=== PATIENT | male | born 1960 | race Caucasian/White ===

== ENCOUNTER 2021-01-21 08:20 | Outpatient (CLI) | payer BC | END 2021-01-21 08:21 | disposition home or self-care (01) | LOC: CSHMRI 08:20 → MERGE 08:20 → CSHMRI 08:21 | PROVIDERS: ATTEND Radiology Radiation Oncology | DX: C61 Malignant neoplasm of prostate (principal) | CPT/HCPCS: 72197 ==

== ENCOUNTER 2021-05-04 08:28 | Outpatient (CLI) | payer BC | END 2021-05-04 08:29 | disposition home or self-care (01) | LOC: CSHMRI 08:28 | PROVIDERS: ATTEND Radiology Radiation Oncology | DX: C61 Malignant neoplasm of prostate (principal); R59.0 Localized enlarged lymph nodes | CPT/HCPCS: 72197 ==